=== PATIENT | female | born 1945 | race Caucasian/White ===

== ENCOUNTER 2019-07-02 10:55 | Outpatient (CLI) | payer MEDICARE, MEDICAID, SELFPAY ==
--- NOTE | ~2019-07-02 | XR_ITS ---
EXAMINATION: XR hip BI 2V w AP pelvis DATE: 07/02/2019 11:30 INDICATION: Sacroiliac and right leg pain TECHNIQUE: AP view the pelvis and two views of each hip were obtained. COMPARISON: None. FINDINGS: Bone alignment is normal. There is no fracture. Mild bilateral hip osteoarthritis is noted. Calcified atherosclerosis is seen. IMPRESSION: 1. Mild osteoarthritis without acute osseous abnormality. Reviewed, dictated and finalized at location A.
== END 2019-07-02 10:56 | disposition home or self-care (01) ==
DX: M53.3 Sacrococcygeal disorders, not elsewhere classified (principal)
CPT/HCPCS: 73521

== ENCOUNTER 2019-07-09 15:37 | Outpatient (RCR) | payer MEDICARE, MEDICAID, SELFPAY ==
--- NOTE | 2019-07-09 16:25 | PTOPEVAL ---
Thank you for referring Debbie Curry to [facility]. Please review, sign, date and return this plan of care [facility]. I agree with and certify that the following plan of care is medically necessary. Referring Physician Date Admitting Provider: Attending Provider: PHYSICIAN NOT ON STAFF Referring Provider: *PT Outpatient Evaluation Start: 07/09/19 15:52 Freq: Status: Active Protocol: Document 07/09/19 15:50 GERMAN (Rec: 07/09/19 16:19 GERMAN [email or web address]) Therapy Assessment Status Assessment Status Assessment Status Evaluation Evaluation Information Problem Diagnosis SI joint pain Onset 05/09/19 Subjective Information Pt. reports that she developed Query Text:As Reported By Patient/ gradual onset of hip/buttock Family pain about 2 months ago. She reports pain has worsened over the past 2 months. She reports that she does have pain medication that helps, but she still cannot walk any significant distance. she reports pain is also increased with bending and lifting acitvities. She reports that her goal for therapy is to be able to walk with improved comfort. Prior Level of Function Activity Level (Last 3 Months) Occupation retired Hand Dominance Right Activity of Daily Living Ability Independent Indoor/Home Mobility Independent Community Mobility Independent Stairs Ability Independent Functional Cognition (Planning, Shopping Independent , Taking Medications) Cooking Yes Cleaning Yes Laundry Yes Shopping Yes Driving Yes Pain Assessment Timing of Pain Assessment Timing of Pain Assessment Pre-Treatment Pain Scale Pain Scale Used Numeric (1 - 10) Self Report Pain Assessment Lower Back Reported Pain Level 4 Pain Description Aching,Crushing Pain Frequency Chronic Lowest Pain Intensity 4 Greatest Pain Intensity 10 Pain Aggravating Factors Bending,Lifting,Prolonged Position,Walking Pain Relief Interventions Used By Medication,Sitting Patient Pain Score Pain Score 4: Self Report Cervical and Lumbar ROM Lumbar ROM Lumbar Fl
--- NOTE | 2019-08-06 18:00 | PTOPEVAL ---
Thank you for referring Debbie Curry to [facility] [place]. Please review, sign, date and return this plan of care [facility]. I agree with and certify that the following plan of care is medically necessary. Referring Physician Date Admitting Provider: Attending Provider: PHYSICIAN NOT ON STAFF Referring Provider: *PT Outpatient Evaluation Start: 07/09/19 15:52 Freq: Status: Active Protocol: Document 08/06/19 17:51 GERMAN (Rec: 08/06/19 18:00 GERMAN [email or web address]) Therapy Assessment Status Assessment Status Assessment Status Discharge Evaluation Information Problem Diagnosis SI joint pain Onset 05/09/19 Additional Evaluation Detail [id number] Subjective Information Pt. reports little change in Query Text:As Reported By Patient/ her pain levels. She states Family that she returns to the doctor tomorrow. She continues to describe pain in the bilateral groin. Pain Assessment Pain Scale Pain Scale Used Numeric (1 - 10) Self Report Pain Assessment Lower Back Reported Pain Level 3 Pain Score Pain Score 3: Self Report Lower Extremity Muscle Strength Testing General Lower Extremity Strength Gross Lower Extremity Strength bilateral hip flexion 4/5, bilateral hip abduction 3+/5, bialter knee flexion 5/5, bilateral knee extension 5/5, bilateral ankle dorsiflexion 5 /5 Special Tests-Lower Extremity Hip Special Tests JHOANA Positive Left,Positive Right FADIR Positive Left,Positive Right Gait Assessment Gait Assessment Additional Ambulation Comments Continue to note trendelenburg on right and left with decresaed stance time and antalgia. PT Clinical Summary Clinical Summary Protocol: PTEVCODE PT Clinical Summary Pt. has attended 4 weeks of PT focusing on core strength and stability, as well as modality care to decrease pain . She continues to present with groin pain consistent with possible hip pathology. At this time she will return to her doctor to discuss alternative treatment for remaining l.e. pain. Treatment Frequency and Duration d/c from PT, consider lumbar
== END 2019-08-06 10:25 | disposition home or self-care (01) ==
LOC: CHSPT 15:37
PROVIDERS: PCP Family Medicine
DX: M53.3 Sacrococcygeal disorders, not elsewhere classified (principal); M16.0 Bilateral primary osteoarthritis of hip
CPT/HCPCS: 97014; 97110; 97161; G0283

== ENCOUNTER 2021-06-27 11:15 | Outpatient (CLI) | payer MEDICARE, MEDICAID, SELFPAY ==
[2021-06-27 13:04] LABS: SARS-CoV-2 Ag Negative (Negative)
== END 2021-06-27 11:16 | disposition home or self-care (01) ==
PROVIDERS: PCP Family Medicine; Visit Provider Physician Assistant
DX: Z71.84 Encounter for health counseling related to travel (principal); Z20.822 Contact with and (suspected) exposure to COVID-19
CPT/HCPCS: 87426; C9803